=== PATIENT | male | born 1995 | race Caucasian/White ===

== ENCOUNTER 2016-05-07 14:15 | Emergency (ER) | payer OTHER ==
[~2016-05-07] VITALS: Ht 172.7 cm; Wt 56.2 kg
[2016-05-07 17:46] LABS: BASOPHIL % 0.4 % (0-2); PLATELET COUNT 234 x10^3mcL (130-400); RED CELL DISTRIBUTION WIDTH 12.7 % (11.5-14.5)
[2016-05-07 17:51] LABS: microscopic required? NO
[2016-05-07 17:59] LABS: urine erythrocyte NEGATIVE (NEGATIVE)
[2016-05-07 18:02] LABS: CALCIUM 9.2 mg/dL (8.5-10.1); CARBON DIOXIDE 31.4 mmol/L (21-32); CHLORIDE SERUM 102 mmol/L (98-107); GFR1 > 60 mL/min; GLUCOSE SERUM 85 mg/dL (74-106); POTASSIUM SERUM 4.1 mmol/L (3.5-5.1); SODIUM SERUM 140 mmol/L (136-145)
[2016-05-07 18:06] LABS: ALBUMIN 4.7 g/dL (3.4-5.0); ALKALINE PHOSPHATASE 73 U/L (46-116); ALT/SGPT 22 U/L (16-63); AST/SGOT 14 U/L (15-37); BILIRUBIN TOTAL 0.7 mg/dL (0.20-1.00); TOTAL PROTEIN, SERUM 8.1 g/dL (6.4-8.2)
[2016-05-07 18:07] LABS: AMPHETAMINE QUAL UR NONE DETECTED (NEG <=1000)
[2016-05-07 18:38] VITALS: BP 146/70
== END 2016-05-07 18:37 | disposition home or self-care (01) ==
LOC: ED 14:15
PROVIDERS: Emergency Medicine
DX: F41.1 Generalized anxiety disorder (principal); R00.2 Palpitations
CPT/HCPCS: 80305; 80307; G0480